=== PATIENT | female | born 1970 | race Asian ===

== ENCOUNTER → 2022-03-02 15:54 | Outpatient (CLI) | payer OTHER, SELFPAY ==
--- NOTE | 2022-03-02 | DI.ECHO.S_ITS ---
[facility] +---------+ : : [address] : : : : [address] : : : : [place], : : : : [place] [id number] : : : : Phone: [phone] + [facility]-2010 Echocardiogram Report + + :Name: ASHANTI DAWKINS Study Date: 03/02/2022 Height: 61.5 in: :[facility] ReadingLocation: Weight: 123 lb : : Gender: Female BSA: 1.5 m2 : :: 1970 Age: 51 yrs BP: 148/72 mmHg: :Reason For Study: Pulmonary Artery Artresia : :Ordering Physician: FANNY, : :KIERA Yañez Performed By: Valentin Laughlin : :Referring: KIERA RAMOS : + + Interpretation Summary The ejection fraction is estimated to be 60-65%. Diastolic parameters suggest probable normal left ventricular diastolic function and normal filling pressures. The right ventricle is normal in size and function. No significant valvular abnormalities. Unable to estimate PASP. Procedure: A two-dimensional transthoracic echocardiogram with color flow and Doppler was performed. The study quality was technically adequate. There is no prior echocardiogram noted for this patient. The patient was in normal sinus rhythm during the exam. Left Ventricle: The left ventricle is normal in size and wall thickness. Left ventricular systolic function is normal. The ejection fraction is estimated to be 60-65%. There are no focal wall motion abnormalities. Diastolic parameters suggest probable normal left ventricular diastolic function and normal filling pressures. Right Ventricle: The right ventricle is normal in size and function. Atria: Both atria are normal in size. The interatrial septum grossly appears intact with no obvious evidence for an atrial septal defect. Mitral Valve: The mitral valve is normal in structure and function. There is no mitral regurgitation noted. Aortic Valve: The aortic valve is not well visualized. There is no aortic valve stenosis. No aortic regurgitation is present. Tricuspid Valve: The tricuspid valve is normal in structure and function. No tricuspid regurgitation. Pulmonary artery pressures cannot be estimated because of the lack of a measurable TR jet velocity. Pulmonic Valve: The pulmonic valve is normal in structure and function. There is no pulmonic valvular regurgitation. Great Vessels: The aortic root is not well visualized. The ascending aorta could not be visualized. The IVC is of normal diameter and collapses greater than 50% with a sniff. This suggests a low right atrial pressure of 3 mm Hg. Pericardium/ Pleura There is no pericardial effusion. There is no pleural effusion. MMode/2D Measurements & Calculations LVIDd: 3.9 cm LA A4 area: 13.8 cm2 LVIDs: 2.4 cm LA length (vol): 4.8 cm IVSd: 0.90 cm LVPWd: 0.92 cm LV lakhani. diameter/BSA (cm/m^2): 2.5 LV sys. diameter/BSA (cm/m^2): 1.6 FS: 37.3 % RA long axis: 4.2 cm TAPSE: 2.6 cm RA area: 10.6 cm2 RA vol: 22.6 ml RA : 14.6 ml/m2 Doppler Measurements & Calculations Ao V2 max: 149.7 cm/sec LVOT Max Matthew: 103.4 cm/sec Ao V2 mean: 102.6 cm/sec LV V1 max P.3 mmHg Ao V2 VTI: 29.5 cm LV V1 VTI: 22.2 cm Ao max P.0 mmHg Ao mean P.8 mmHg sev ratio: 0.75 MV E max matthew: 92.7 cm/sec MV A max matthew: 87.9 cm/sec MV E/A: 1.1 Med Peak E' Matthew: 12.6 cm/sec E/E' med: 7.4 Lat Peak E' Matthew: 12.7 cm/sec E/E' lat: 7.3 E/e' average: 7.3 MV dec time: 0.22 sec Reading Physician:10:09 AM
== END ==
PROVIDERS: Referring Provider Internal Medicine Cardiovascular Disease; Visit Provider Internal Medicine Cardiovascular Disease
DX: Q25.5 Atresia of pulmonary artery (principal)
CPT/HCPCS: 93306